=== PATIENT | male | born 1980 | race Hispanic/Latino ===

== ENCOUNTER 2021-07-25 13:14 | Emergency (ER) | payer SELFPAY ==
[~2021-07-25] VITALS: Ht 180.3 cm; Wt 94.3 kg
[2021-07-25] MEDS ORDERED: KETOROLAC TROMETHAMINE 30 MG/ML VIAL IV STA (15:22)
[2021-07-25] MEDS ORDERED: AZITHROMYCIN250 MG PO (15:26)
[2021-07-25] MEDS ORDERED: NAPROSYN500 MG PO (15:27)
[2021-07-25 15:49] VITALS: BP 154/78
== END 2021-07-25 15:56 | disposition home or self-care (01) ==
LOC: FSED 13:31
DX: M94.0 Chondrocostal junction syndrome [Tietze] (principal); J20.9 Acute bronchitis, unspecified; F17.210 Nicotine dependence, cigarettes, uncomplicated
CPT/HCPCS: 71046; 80053; 82553; 84484; 85025; 99283; J1885